=== PATIENT | male | born 1955 | race Caucasian/White ===

== ENCOUNTER 2016-11-08 13:10 | Day surgery (SDC) | payer BC ==
[~2016-11-08 13:10] MED LIST: ADVIL PO; OXYIR5 MG PO; PEPTO BISMOL LIQ1 ML PO; PR25 PO; VALIUM10 MG PO
== END 2016-11-08 23:59 | disposition home or self-care (01) ==
LOC: DMU 13:10
DX: R63.4 Abnormal weight loss (principal); R93.3 Abnormal findings on diagnostic imaging of other parts of digestive tract; F41.9 Anxiety disorder, unspecified; Z53.9 Procedure and treatment not carried out, unspecified reason; Z88.1 Allergy status to other antibiotic agents; Z79.891 Long term (current) use of opiate analgesic; Z79.1 Long term (current) use of non-steroidal anti-inflammatories (NSAID); Z79.899 Other long term (current) drug therapy; N40.0 Benign prostatic hyperplasia without lower urinary tract symptoms
CPT/HCPCS: 82962; Q9967

== ENCOUNTER 2016-11-12 06:11 | Day surgery (SDC) | payer BC ==
--- NOTE | ~2016-11-12 | EGD ---
EGD REPORT [facility] [address] [place] [address] NAME: SHELLEY OSUNA : 55 STATUS : REG [facility] PAT#: [id number] AGE: 61 ADM/REG DATE : 11/12/16 MR#: [id number] REPORT SERV DATE: 11/12/16 DICTATED BY: MARGO LAZCANO DATE: 11/12/16 REPORT STATUS : Draft TRANSCRIBED BY: [employer] DATE: 11/12/16 [facility] Patient Name: Shelley Osuna Date of : 1955 Attending MD: MARGO LAZCANO, Procedure Date No Time: 11/12/2016 Procedure: Upper EUS Indications: Suspected solid pancreatic neoplasm Referring MD: KRISTAL Moyer MICHAEL A. STIPANOV Medicines: General Anesthesia Complications: No immediate complications. Estimated blood loss: None. Procedure: Pre-Anesthesia Assessment: - ASA Grade Assessment: II - A patient with mild systemic disease. After obtaining informed consent, the endoscope was passed under direct vision. Throughout the procedure, the patient's blood pressure, pulse, and oxygen saturations were monitored continuously. The Endoscope was introduced through the mouth, and advanced to the second part of duodenum. Findings: Endosonographic Finding : An irregular mass was identified in the pancreatic head. The mass was hypoechoic. The mass measured 41 mm by 29 mm in maximal cross-sectional diameter. The endosonographic borders were well-defined. There was sonographic evidence suggesting invasion into the splenoportal confluence (manifested by encasement). Fine needle aspiration was performed. Color Doppler imaging was utilized prior to needle puncture to confirm a lack of significant vascular structures within the needle path. Six passes were made with the 22 gauge needle using a transduodenal approach. No stylet was used. A preliminary cytologic examination was not performed. Final cytology results are pending. An anechoic lesion suggestive of a cyst was identified in the genu of the pancreas. The lesion measured 15 mm. There was a single compartment. The pancreatic duct had a dilated endosonographic appearance in the body of the pancreas. The pancreatic duct measured up to 4 mm in diameter. Endosonographic images of the stomach were unremarkable. There was no sign of significant endosonographic abnormality in the esophagus. Impression: - A mass was identified in the pancreatic head. - A 15 mm cystic lesion was seen in the genu of the pancreas. - The pancreatic duct had a dilated endosonographic EGD REPORT [address] [address] NAME: SHELLEY OSUNA : 55 STATUS : REG [facility] PAT#: [id number] AGE: 61 ADM/REG DATE : 11/12/16 MR#: [id number] REPORT SERV DATE: 11/12/16 DICTATED BY: MARGO LAZCANO DATE: 11/12/16 REPORT STATUS : Draft TRANSCRIBED BY: [employer] DATE: 11/12/16 appearance in the body of the pancreas. The pancreatic duct measured up to 4 mm in diameter. - Endosonographic images of the stomach were unremarkable. - There was no sign of significant pathology in the esophagus. Recommendation: - Return to previous diet. - Continue present medications. - Perform an ERCP today. - Await path results. Procedure Code(s): --- Professional --- 87908, Esophagogastroduodenoscopy, flexible, transoral; with transendoscopic ultrasound-guided intramural or transmural fine needle aspiration/biopsy(s) (includes endoscopic ultrasound examination of the esophagus, stomach, and either the duodenum or a surgically altered stomach where the jejunum is examined distal to the anastomosis) Diagnosis Code(s): --- Professional --- K86.8, Other specified diseases of pancreas K86.2, Cyst of pancreas R93.3, Abnormal findings on diagnostic imaging of other parts of digestive tract CPT copyright 2013 [employer]. All rights reserved. The codes documented in this report are preliminary and upon spiral tube winder review may be revised to meet current compliance requirements. MARGO LAZCANO, 11/12/2016 10:33 AM Number of Addenda: 0 Note Initiated On: 11/12/2016 9:31 AM Scope Withdrawal Time 0 hours 0 minutes 0 seconds [address] [place] [address]
--- NOTE | ~2016-11-12 | EGD ---
EGD REPORT [facility] [address] [place] [address] NAME: SHELLEY OSUNA : 55 [place] : [place] [facility] [place] PAT#: [id number] AGE: 61 ADM/REG DATE : 11/12/16 MR#: [id number] REPORT SERV DATE: 11/12/16 DICTATED BY: MARGO LAZCANO DATE: 11/12/16 REPORT STATUS : Draft TRANSCRIBED BY: [employer] DATE: 11/12/16 [facility] Patient Name: Shelley Osuna Date of : 1955 Attending MD: MARGO LAZCANO, Procedure Date No Time: 11/12/2016 Procedure: ERCP Indications: Jaundice, Malignant tumor of the head of pancreas Referring MD: Boone Clayton, YOUSIF MARTINEZ, KRISTAL COY Medicines: General Anesthesia Complications: No immediate complications. Estimated blood loss: None Procedure: Pre-Anesthesia Assessment: - ASA Grade Assessment: II - A patient with mild systemic disease. After obtaining informed consent, the scope was passed under direct vision. Throughout the procedure, the patient's blood pressure, pulse, and oxygen saturations were monitored continuously. The Endoscope was introduced through the mouth, and advanced to the duodenum and used to inject contrast into the bile duct. The ERCP was accomplished without difficulty. The patient tolerated the procedure well. Findings: The bile duct was deeply cannulated with the short-nosed traction sphincterotome. Contrast was injected. I personally interpreted the bile duct images. Ductal flow of contrast was adequate. The lower third of the main bile duct contained a single localized stenosis 15 mm in length. The upper third of the main bile duct was diffusely dilated. One 10 mm by 6 cm covered metal stent was placed into the common bile duct. Bile flowed through the stent. The stent was in good position. 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 - The upper third of the main bile duct was dilated. Recommendation: - Return to previous diet. - Continue present medications. - Return to referring physician. Procedure Code(s): --- Professional --- 92612, Endoscopic retrograde cholangiopancreatography (ERCP); with placement of endoscopic stent into biliary or pancreatic duct, including pre- and post-dilation and guide wire passage, when performed, including sphincterotomy, when performed, each stent EGD REPORT [address] 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 All rights reserved. The codes documented in this report are preliminary and upon log rafter review may be revised to meet current compliance requirements. MARGO LAZCANO, 11/12/2016 10:35 AM Number of Addenda: 0 Note Initiated On: 11/12/2016 9:29 AM Scope Withdrawal Time 0 hours 0 minutes 0 seconds [id number] [place] [address]
[2016-11-12 07:37] LABS: BUN (BLOOD UREA NITROGEN) 9 MG/DL (6-23); CALCIUM, SERUM 8.9 MG/DL (8.5-10.4); CHLORIDE, SERUM 102 MMOL/L (96-112); CO2 (CARBON DIOXIDE) 26 MMOL/L (24-34); CREATININE 0.79 MG/DL (0.70-1.30); GFR AFRICAN AMERICAN 112 ML/MIN (>=60); GFR NON AFRICAN AMERICAN 97 ML/MIN (>=60); GLUCOSE, SERUM 250 MG/DL (60-99); POTASSIUM, SERUM 3.9 MMOL/L (3.5-5.3); SODIUM, SERUM 138 MMOL/L (135-148)
== END 2016-11-12 23:59 | disposition home or self-care (01) ==
LOC: DMU 06:11
PROVIDERS: Anesthesiology; Internal Medicine Gastroenterology
PROC: 0FBG4ZX Excision of Pancreas, Percutaneous Endoscopic Approach, Diagnostic (ICD-10-PCS; principal; 2016-11-12 07:00)
PROC: 0F798DZ Dilation of Common Bile Duct with Intraluminal Device, Via Natural or Artificial Opening Endoscopic (ICD-10-PCS; 2016-11-12 07:00)
DX: C25.0 Malignant neoplasm of head of pancreas (principal); K86.89 Other specified diseases of pancreas; K86.2 Cyst of pancreas; F41.9 Anxiety disorder, unspecified; Z88.7 Allergy status to serum and vaccine; Z79.899 Other long term (current) drug therapy
CPT/HCPCS: 74330; 80048; 88173; 88305; C1725; C1876; J1610; J2405; J2710; J3010; Q9967